=== PATIENT | male | born 1960 | race African-American/Black ===

== ENCOUNTER 2016-06-08 17:42 | Emergency (ER) | payer SELFPAY ==
[~2016-06-08] VITALS: Ht 180.3 cm; Wt 100.0 kg
[2016-06-08] MEDS ORDERED: KETOROLAC TROMETHAMINE 60 MG/2 ML VIAL IM ONE (20:45)
[2016-06-08 21:06] VITALS: BP 143/87
== END 2016-06-08 21:07 | disposition home or self-care (01) ==
LOC: EMS 17:45
DX: M62.838 Other muscle spasm (principal); S16.1XXA Strain of muscle, fascia and tendon at neck level, initial encounter; S13.4XXA Sprain of ligaments of cervical spine, initial encounter; Z87.891 Personal history of nicotine dependence; F17.210 Nicotine dependence, cigarettes, uncomplicated; V89.2XXA Person injured in unspecified motor-vehicle accident, traffic, initial encounter; Y93.89 Activity, other specified; Y92.413 State road as the place of occurrence of the external cause; Y99.9 Unspecified external cause status
CPT/HCPCS: 96372; 99283; J1885